=== PATIENT | female | born 1995 | race Caucasian/White ===

== ENCOUNTER 2016-03-12 16:45 | Emergency (ER) | payer BC ==
[~2016-03-12] VITALS: Ht 162.6 cm; Wt 114.0 kg
[~2016-03-12 16:45] MED LIST: AMPH20CA3 PO; AMPH20TA2 PO; CETI10TA10 PO; CHOL100010 PO; DICL1GEL28 TOP; FLUO20CA34 PO; MELO15TA4 PO; META-38 PO; NORE1TAB93 PO
[2016-03-12 16:49] VITALS: TEMP 36.9; Ht 162.6 cm; Wt 114.0 kg
[2016-03-12] MEDS ORDERED: CEPH500C PO (17:43)
[2016-03-12] MEDS ORDERED: SULF800T23 PO (17:43)
[2016-03-12] MEDS ORDERED: SULFAMETHOXAZOLE/TRIMETHOPRIM DS 800/160MG TAB PO ONE (17:45)
[2016-03-12] MEDS ORDERED: CEPHALEXIN MONOHYDRATE 250 MG CAP PO ONE (17:45)
[2016-03-12 17:47] VITALS: BP 152/89; PULSE 78; O2SAT 99
--- NOTE | 2016-03-13 00:34 | EMERGENCY ROOM VISIT NOTE ---
History First contact with patient: 16:52 Chief Complaint: WOUND INFECTION Stated Complaint: RT BIG TOE SWOLLEN & PAINFUL,POSSIBLE INFECTION Nursing Triage Summary: Right great toe with discharge with redness/swelling. History of Present Illness The patient is a 20 year old female who presents to the Emergency Room with complaints of infection to her right great toe worsening over the past several days. The patient does not have injury or trauma to the area. She has not had fever or chills. The patient has been able to ambulate with minimal discomfort. She has had redness to the area on the toe, but not to the foot. She is not diabetic. She rates her discomfort a 5/10. Review of Systems More than 10 systems were reviewed and otherwise negative with the exception of history of present illness. Past Medical/Surgical History No pertinent chronic medical disease Family History No pertinent family history Social History Smoking Status: Never Smoker Housing Status: lives with family Current/Historical Medications Scheduled Amphetamine-Dextroamphetamine 20MG (Adderall Xr 20MG), 40 MG PO QAM Cephalexin Monohydrate (Keflex), 500 MG PO TID Cholecalciferol (Vitamin D), 4,000 INTER.UNIT PO DAILY Fluoxetine Hcl (Prozac), 60 MG PO QAM Meloxicam (Mobic), 15 MG PO DAILY Norethin Acet & Estrad-Fe (Blade Fe 1.5/30 1.5-30 mg-Mcg), 1 TAB PO QPM Sulfamethoxazole-Trimethoprim (Bactrim Ds 800MG/160MG), 1 TAB PO BID Scheduled PRN Amphetamine-Dextroamphetamine 20MG (Adderall 20MG), 20 MG PO DAILY PRN for PRN Diclofenac Sod (Voltaren 1% Top Gel), 1 APPLN TOP DAILY PRN for Pain Metaxalone (Skelaxin), 800 MG PO DAILY PRN for Pain Allergies Coded Allergies: NUTS (Unverified Allergy, Severe, anaphylactic shock, 10/29/14) Nut Tree (Unverified Allergy, Severe, ANAPHYLACTIC SHOCK, 10/29/14) Physical Exam Vital Signs Date Time Temp Pulse Resp B/P Pulse Ox O2 Delivery O2 Flow Rate FiO2 03/12/16 17:47 78 18 152/89 99 Room Air 03/12/16 16:49 36.9 91 16 148/96 96 Room Air Pain Rating (0-10): 0 Physical Exam VITALS: Vitals are noted on the nurse's note and reviewed by myself. Vital signs stable. GENERAL: Well-developed, well-nourished, white female, who is in no acute distress and resting comfortably. Patient is cooperative with the examination. HEAD: Normocephalic atraumatic. MUSCULOSKELETAL: There is a right first toe paronychia medially. There is mild surrounding erythema but no lymphangitic streaking. Neurovascular status is intact the distal toe. No MTP joint tenderness. No other significant findings noted. NEURO: Patient was alert and oriented to person place and time. Medical Decision & Procedures Medications Administered Medications (Trade) Dose Ordered Sig/Maurilio Route Start Time Stop Time Status Last Admin Dose Admin Trimethoprim/ Sulfamethoxazole (Septra Ds 800/ 160MG Tab) 1 tab NOW ONCE PO 03/12/16 17:45 03/12/16 17:46 DC 03/12/16 17:45 1 TAB Cephalexin Monohydrate (Keflex Cap) 500 mg NOW ONCE PO 03/12/16 17:45 03/12/16 17:46 DC 03/12/16 17:46 500 MG Procedure I examined the patient. Verbal consent was obtained to perform the procedure. After saline and Betadine cleansing Ethyl chloride was used as a topical anesthetic. The abscess was incised with an 18-gauge needle. A large amount of purulent material was released with more expressed by pressure. A swab was obtained for culture. The abscess cavity was irrigated. The area was dressed with bacitracin and a bulky bandage. The patient tolerated the procedure well and without complication. ED Course Physical exam and history were performed. Nursing notes and EMR were reviewed. Patient appears to have a paronychia of her right great toe. I discussed options of care with the patient, and incision and drainage was performed as above. Patient tolerated the procedure well and a culture was sent to the lab. I will start the patient on a course of Bactrim and Keflex for her symptoms. I recommended that she follow with her primary care physician with any ongoing or persistent symptoms. She was otherwise invited back to the ER anytime, and was pleased with plan of care. The chart was completed utilizing [employer] Voice Recognition Software. Grammatical errors, random word insertions, pronoun errors, and incomplete sentences are an occasional consequence of this system due to software limitations, ambient noise, and hardware issues. Any formal questions or concerns about the content, text, or information contained within the body of this dictation should be directly addressed to the provider for clarification. . Medical Decision Differential diagnosis: Etiologies such as cellulitis, abscess, MRSA infection, DVT, necrotizing fasciitis, dermatitis, drug eruption, as well as others were entertained.. Impression Primary Impression: Paronychia of toe of right foot Departure Information Dispostion Home / Self-Care Condition GOOD Prescriptions Cephalexin Monohydrate (Keflex) 500 Mg Cap 500 MG PO TID for 7 Days, #21 CAP Prov: Shadi Bloom PA-C 03/12/16 Sulfamethoxazole-Trimethoprim (Bactrim Ds 800MG/160MG) 1 Tab Tab 1 TAB PO BID for 7 Days, #14 TAB Prov: hSadi Bloom PA-C 03/12/16 Forms WORK / SCHOOL INSTRUCTIONS, HOME CARE DOCUMENTATION FORM, IMPORTANT VISIT INFORMATION Patient Instructions My [facility] Additional Instructions You were seen and evaluated today on an emergency basis only. This is not a substitute for, or an effort to provide, complete comprehensive medical care. It is not possible to recognize and treat all injuries or illnesses in a single emergency department visit. For this reason it is recommended that you followup with your primary care physician with any ongoing or persistent symptoms. For baseline pain relief you may alternate ibuprofen and acetaminophen every 4 hours for pain control. Take 600 mg ibuprofen (Advil) and then 4 hours later take 1000 mg acetaminophen (Tylenol). Do not take more than 3000 mg acetaminophen in a single day. Trimethoprim-Sulfamethoxazole(Bactrim DS): Take one pill twice daily for 7 days for your skin infection. All antibiotics can cause diarrhea. If this occurs and you feel worse or it does not resolve in 1-2 days follow up with your doctor or return to the Emergency Department as this could be signs of serious underlying problems. Any medication can cause an allergic reaction, stop the pills immediately and return to the ER for rash, hives, breathing difficulties, or swelling. Cephalexin(Keflex) 500mg: Take one pill 3 times daily for 7 days for your skin infection. All antibiotics can cause diarrhea. If this occurs and you feel worse or it does not resolve in 1-2 days follow up with your doctor or return to the Emergency Department as this could be signs of serious underlying problems. Any medication can cause an allergic reaction, stop the pills immediately and return to the ER for rash, hives, breathing difficulties, or swelling. You are welcome to return to the emergency department anytime with new, worsening, or concerning symptoms.
== END 2016-03-12 17:54 | disposition home or self-care (01) ==
LOC: C.EDB 16:46 → C.EDD 17:54
DX: L03.031 Cellulitis of right toe (principal); Z91.018 Allergy to other foods

== ENCOUNTER 2016-03-25 17:14 | Emergency (ER) | payer BC ==
[~2016-03-25] VITALS: Ht 162.6 cm; Wt 113.4 kg
[~2016-03-25 17:14] MED LIST changes: -CETI10TA10 PO
[2016-03-25 17:16] VITALS: BP 164/67; PULSE 77; TEMP 36.6; O2SAT 97; Ht 162.6 cm; Wt 113.4 kg
[2016-03-25] MEDS ORDERED: ACETAMINOPHEN 500 MG TAB PO STA (17:34)
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
== END 2016-03-25 18:34 | disposition home or self-care (01) ==
LOC: C.EDB 17:15 → C.EDD 18:34
DX: M79.642 Pain in left hand (principal); J45.909 Unspecified asthma, uncomplicated; Z82.49 Family history of ischemic heart disease and other diseases of the circulatory system; Z83.3 Family history of diabetes mellitus; Z79.899 Other long term (current) drug therapy; R03.0 Elevated blood-pressure reading, without diagnosis of hypertension